=== PATIENT | female | born 1970 | race African-American/Black ===

== ENCOUNTER 2019-02-06 19:19 | Emergency (ER) | payer SELFPAY ==
[~2019-02-06] VITALS: Ht 160 cm; Wt 69.0 kg
[2019-02-06 21:01] LABS: CLARITY URINE CLEAR (CLEAR); COLOR URINE YELLOW (YELLOW); KETONES URINE NEGATIVE (NEGATIVE); LEUKOCYTE ESTERASE URINE NEGATIVE (NEGATIVE); NITRITE URINE NEGATIVE (NEGATIVE); OCCULT BLOOD URINE NEGATIVE (NEGATIVE); PH URINE 5.5 (4.5-8.0); PROTEIN URINE 1+ (NEGATIVE); SPECIFIC GRAVITY URINE 1.015 (1.005-1.030); UROBILINOGEN URINE 0.2 E.U./dL (0.2-1.0)
[2019-02-06] MEDS: SODIUM CHLORIDE 0.9% 1,000 ML IV ONE ×2 (22:51→23:27)
[2019-02-06 22:55] LABS: BASOPHILS % 0.9 % (0.0-2.0); EOSINOPHILS % 3.5 % (0.0-5.0); HEMATOCRIT. 40.4 % (36.0-48.0); HEMOGLOBIN. 13.8 g/dL (12.0-16.0); LYMPHOCYTES % 32.6 % (20.0-50.0); MEAN CORPUSCULAR HEMOGLOBIN 32.1 pg (28.0-32.0); MEAN CORPUSCULAR VOLUME 94.1 fL (81.0-99.0); MEAN PLATELET VOLUME 8.1 fl (7.4-10.4); MONOCYTES % 11.3 % (2.0-8.0); NEUTROPHILS % 51.7 % (40.0-76.0); PLATELET 320 x1000/uL (130-400); RED BLOOD CELL COUNT 4.29 mill/uL (4.2-5.4)
[2019-02-06 22:58] LABS: CHLORIDE 105 mEq/L (98-107)
[2019-02-07 00:55] VITALS: BP 135/71
== END 2019-02-07 01:02 | disposition home or self-care (01) ==
LOC: ER 19:19
DX: R10.32 Left lower quadrant pain (principal); I10 Essential (primary) hypertension; Z98.890 Other specified postprocedural states
CPT/HCPCS: 36415; 80053; 81003; 81025; 83690; 85025; 99283; J7030